=== PATIENT | male | born 1935 | race Caucasian/White ===

== ENCOUNTER 2016-11-20 06:57 | Day surgery (SDC) | payer OTHER, MEDICARE ==
[~2016-11-20 06:57] MED LIST: LIDOCAINE W/ SODIUM BICARB 0.5 ML SYR ONE; Lactated Ringers 1,000 ML PRIMARY IV ONE; ceFAZolin Inj 2gm (Premix) 50 ML IV ONE
[2016-11-20] MEDS ORDERED: LIDOCAINE 2% 20 MG/ML - 20 ML VIAL ONE (08:41)
[2016-11-20] MEDS ORDERED: BUPivacaine Inj 0.5% PF (5mg/ml) 10ml vial ONE ×2 (08:41→09:51)
[2016-11-20] MEDS ORDERED: MIDAZOLAM 5 MG/1 ML ONE (08:46)
[2016-11-20] MEDS ORDERED: fentaNYL Inj 250 MCG/5 ML VIAL ONE (08:47)
[2016-11-20] MEDS ORDERED: ePHEDrine Inj 50 MG/ML AMP ONE (09:50)
[2016-11-20] MEDS ORDERED: Lactated Ringers 1,000 ML PRIMARY IV ONE (11:54)
[2016-11-20] MEDS ORDERED: NORMAL SALINE 10 ML SYRINGE FLUSH IVP PRN (12:28)
--- NOTE | 2016-11-20 13:13 | DI ---
XR FOOT COMPLETE MIN 3VW,11/20/2016 12:29 PM: Clinical History: Postoperative findings of the left foot. Previous Exam: None at this facility. Findings: Multiple views of the left foot are obtained, and demonstrate a cutaneous K wire placement of the sec ond and third digits. Patient is also status post osteotomy of the second and third proximal phalange s. There is some soft tissue swelling. There is in these up the at the insertion of the plantar fascia. Impression: Postsurgical changes consistent with K wire fixation of the second and third digits.
[2016-11-20] MEDS ORDERED: oxyCODONE-ACETAMINOPHEN 5-325 TAB PO ONE (13:27)
[2016-11-20 14:16] VITALS: RESP 16
[2016-11-20 14:17] VITALS: TEMP 97.6
--- NOTE | 2016-11-20 15:48 | PT.PROG ---
Progress Note Progress Note: S: pt. states he is feeling pretty good. Discussed with patient about stair climbing and use of walker upon returning home. Pt's and son in [place] with patient. O: Treatment consisted of gait training with use of walker on level surfaces x 25 feet, up and down 3 stairs with use of walker. Pt. demonstrated proper use and understanding. A: Pt. did well with all activities. All questions and or concerns were answered. P: Discharge patient at this time as no other orders are indicated. Pearl Jeffries, SUPERVISOR [employer]
--- NOTE | 2016-11-20 17:40 | GEN.OPNOTE ---
Operative Report Surgeon: Dr. Adithya Alan DPM Anesthesia Type: Local, MAC Anesthesia Provider: Juan Siddiqi CRNA Surgery Date: 11/20/16 Preoperative Diagnosis: Patient has hammertoes second third and fourth digits on the left foot. 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 Postoperative Diagnosis: Same Procedure: PIPJ arthroplasty and MPJ capsule on a me second and third digits left foot. Fourth digit flexor and extensor tendon release. Estimated Blood Loss (mL): 2 Description of Procedure: Under mild sedation the patient was wheeled into the operating room placed on the operating table in supine position a well-padded pneumatic ankle tourniquet was placed about the left ankle the foot was prepped scrubbed and draped in the usual aseptic manner. Local anesthesia was then used to do a ray blocks of the second third and fourth rays. With a 1:1 mixture of lidocaine and Marcaine, approximately 15 mL was used. We then used Esmarch bandage to exsanguinate the foot and the ankle tourniquet was inflated. Attention was directed the dorsal aspect of the second and third digit where linear longitudinal incision was made approximately 4 cm in length incision was carried down to the level of the PIP joint were arthroplasty of the head of the proximal phalanx was performed and also the base of the middle phalanx. Once this was performed attention was directed to the MP joint where the long extensor tendon was lengthened with a Z- plasty lengthening technique the tendon of the extensor digitorum brevis was also transected dissection was carried down to level of the MP joint on bilateral toes where the MP joint capsule was then released just proximal to the head of the second and third metatarsals keeping the joint capsule intact but freeing up adhesions and loosening the joint capsule. Once this been accomplished the area was flushed K wire was inserted through the middle phalanx out the end of the distal phalanx and retrograded on the proximal phalanx on the second and third digits. The capsule was then reapproximated at the PIP joint with 4-0 nylon on bilateral toes. Once this was accomplished the subcutaneous tissues on both great toes reapproximated and coapted with 3-0 Vicryl and 4-0 Vicryl skin was reapproximated and coapted with 4-0 nylon in a running suture technique. Attention was then directed the fourth digit were incision approximately 2-3 cm in length was made over the MP joint this was carried down to level of the long flexor tendon and the extensor tendon was lengthened at the Z-plasty technique. Subcutaneous tissue is reapproximated with 4-0 Vicryl. The skin was reapproximated and coapted with 4-0 nylon. Attention was then directed to the plantar aspect of the fourth digit at the DIP joint where a 1 cm incision was made and was carried down to level of the long flexor tendon which was transected with a 15 blade once this was accomplished the skin was reapproximated and coapted with 4-0 nylon. Local anesthesia was then injected into the first second third interspaces. Local anesthesia was also used to perform a v-block proximal, and surgery site block consisting of 20 cc of 0.5% Marcaine. Ankle tourniquet was deflated and proper hyperemic response noted to the toes. A dry sterile dressing was applied consisting of Adaptic 4 x 4 gauze Kerlix and Coban. Patient tolerated the procedure well following a brief period of postoperative monitoring the patient will be discharged home with written and oral postoperative instructions.
== END 2016-11-20 14:49 | disposition home or self-care (01) ==
LOC: SDSC 06:57
PROVIDERS: ATTEND Podiatrist Foot & Ankle Surgery
DX: M20.42 Other hammer toe(s) (acquired), left foot (principal)
CPT/HCPCS: 28232; 28234; 28285 ×2; 73630; J0690; J2704; J3010; J2001; J2250; J3490; J7120